=== PATIENT | female | born 1960 | race Caucasian/White ===

== ENCOUNTER 2020-05-06 17:35 | Emergency (ER) | payer OTHER ==
[~2020-05-06] VITALS: Ht 172.7 cm; Wt 81.6 kg
[2020-05-06] MEDS ORDERED: NORCO 5-325 TA1 EACH PO (19:07)
== END 2020-05-06 19:45 | disposition home or self-care (01) ==
LOC: ED 17:35
DX: S16.1XXA Strain of muscle, fascia and tendon at neck level, initial encounter (principal); S39.012A Strain of muscle, fascia and tendon of lower back, initial encounter; V59.40XA Driver of pick-up truck or van injured in collision with unspecified motor vehicles in traffic accident, initial encounter; Z87.891 Personal history of nicotine dependence; Z88.8 Allergy status to other drugs, medicaments and biological substances; Z88.1 Allergy status to other antibiotic agents
CPT/HCPCS: 70450; 71045; 72100; 72125; 72170; 96374; 96375; 99284-25; J2270; J2405; J7030

== ENCOUNTER 2021-03-06 17:12 | Emergency (ER) | payer BC ==
[~2021-03-06] VITALS: Ht 172.7 cm; Wt 75.8 kg
[~2021-03-06 17:12] MED LIST: NORCO 5-325 TA1 EACH PO
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
[2021-03-06] MEDS ORDERED: METFORMIN HCL500 M1 PO (17:37)
[2021-03-06] MEDS ORDERED: ATORVASTATIN CA20 MG PO (17:37)
[2021-03-06] MEDS ORDERED: DICLOFENAC SODI75 MG PO (17:38)
[2021-03-06] MEDS ORDERED: NITROFURANTOIN100 M1 PO (17:38)
[2021-03-06] MEDS ORDERED: CYCLOBENZAPRINE10 MG PO (17:38)
--- NOTE | 2021-03-06 21:47 | EKG ---
[facility] [address] [place], [place] [address] Signed Sinus tachycardia Otherwise normal ECG No previous ECGs available Confirmed by JAY STOUT MD ([id number]) on 03/06/2021 9:47:30 PM Electronically Signed By: JAY STOUT MD 03/06/21 2147 PATIENT NAME: ANURAG DAWKINS [place] Electrocardiogram DATE OF : 64 PHYSICIAN: JAY STOUT MD REPORT #: [id number] REPORT IS CONFIDENTIAL AND NOT TO BE RELEASED WITHOUT AUTHORIZATION
== END 2021-03-06 21:44 | disposition home or self-care (01) ==
LOC: ED 17:12
DX: R55 Syncope and collapse (principal); S01.81XA Laceration without foreign body of other part of head, initial encounter; D69.6 Thrombocytopenia, unspecified; Z20.822 Contact with and (suspected) exposure to COVID-19; E11.9 Type 2 diabetes mellitus without complications; J45.909 Unspecified asthma, uncomplicated; Z87.891 Personal history of nicotine dependence; Z88.8 Allergy status to other drugs, medicaments and biological substances; Z79.899 Other long term (current) drug therapy; Z79.84 Long term (current) use of oral hypoglycemic drugs; W22.8XXA Striking against or struck by other objects, initial encounter; Z23 Encounter for immunization
CPT/HCPCS: 12001; 70450; 80053; 81001; 83735; 84484; 85025; 90471; 90715; 93005; 93010; 99284-25; C9803; J7030; U0003